=== PATIENT | male | born 1995 | race Caucasian/White ===

== ENCOUNTER 2021-05-14 15:39 | Emergency (ER) | payer MEDICAID ==
[~2021-05-14] VITALS: Ht 167.6 cm; Wt 90.0 kg
[2021-05-14 16:02] VITALS: BP 126/79
[2021-05-14] MEDS ORDERED: ONDANSETRON 4MG ODT PO STA ×2 (18:49→23:18)
[2021-05-14 20:03] LABS: BASOPHILS % 1.3 % (0.0-2.0); HEMATOCRIT. 45.5 % (42.0-52.0); LYMPHOCYTES % 33.6 % (20.0-50.0); MEAN CORPUSCULAR HEMOGLOBIN 26.7 pg (28.0-32.0); MEAN CORPUSCULAR VOLUME 81.1 fL (80.0-94.0); MEAN PLATELET VOLUME 9.6 fl (7.4-10.4); MONOCYTES % 5.3 % (2.0-8.0); NEUTROPHILS % 58.8 % (40.0-76.0); PLATELET 327 x1000/uL (130-400); RED CELL DISTRIBUTION WIDTH 13.9 % (11.6-14.6)
[2021-05-14 20:10] LABS: CHLORIDE 107 mEq/L (98-107)
[2021-05-14 23:19] LABS: CLARITY URINE CLEAR (CLEAR); COLOR URINE YELLOW (YELLOW); KETONES URINE TRACE (NEGATIVE); LEUKOCYTE ESTERASE URINE NEGATIVE (NEGATIVE); NITRITE URINE NEGATIVE (NEGATIVE); OCCULT BLOOD URINE NEGATIVE (NEGATIVE); PH URINE 5.5 (4.5-8.0); PROTEIN URINE NEGATIVE (NEGATIVE); SPECIFIC GRAVITY URINE 1.019 (1.005-1.030); UROBILINOGEN URINE 0.2 E.U./dL (0.2-1.0)
[2021-05-15] MEDS ORDERED: ACET-2708 MT (00:27)
[2021-05-15] MEDS ORDERED: FAMO-135 MT (00:27)
[2021-05-15] MEDS ORDERED: KETOROLAC 30MG/ML VIAL IM ONE (00:45)
== END 2021-05-15 03:40 | disposition home or self-care (01) ==
LOC: ER 15:39
DX: R10.11 Right upper quadrant pain (principal); R11.2 Nausea with vomiting, unspecified; R19.7 Diarrhea, unspecified; Z88.0 Allergy status to penicillin
CPT/HCPCS: 36415; 74176; 76705; 80053; 81003; 83690; 85025; 99285; Q0162